=== PATIENT | female | born 1970 | race Two or more races ===

== ENCOUNTER 2019-02-22 07:03 | Day surgery (SDC) | payer OTHER ==
[~2019-02-22 07:03] MED LIST: VITAMIN D1000 UNIT PO
== END 2019-02-22 17:05 | disposition home or self-care (01) ==
LOC: CIR.AMB 07:03
DX: N85.01 Benign endometrial hyperplasia (principal)

== ENCOUNTER 2020-03-04 09:14 | Outpatient (CLI) | payer OTHER | END 2020-03-04 09:18 | disposition home or self-care (01) | LOC: SONOGRAMA 09:14 | DX: R22.2 Localized swelling, mass and lump, trunk (principal) ==